=== PATIENT | female | born 1935 | race Caucasian/White ===

== ENCOUNTER 2018-02-15 13:45 | Emergency (ER) | payer MEDICARE, BC ==
[2018-02-15] MEDS: APIXABAN 5 MG TABLET PO (16:47)
== END 2018-02-15 17:12 | disposition home or self-care (01) ==
LOC: E/R 13:45
DX: I82.411 Acute embolism and thrombosis of right femoral vein (principal); Z79.01 Long term (current) use of anticoagulants
CPT/HCPCS: 99283